=== PATIENT | male | born 2000 | race Caucasian/White ===

== ENCOUNTER 2023-08-05 22:29 | Emergency (ER) | payer OTHER ==
[~2023-08-05] VITALS: Ht 180.3 cm; Wt 117.9 kg
[2023-08-05 22:36] VITALS: BP 132/91; PULSE 92; RESP 16; TEMP 98; O2SAT 99
[2023-08-05] MEDS ORDERED: cefTRIAXone 1,000 MG VIAL ONE (23:09)
[2023-08-05] MEDS: KETOROLAC 60 MG/2 ML VIAL IM ONE (23:23)
[2023-08-05] MEDS: cefTRIAXone 1,000 MG in LIDOCAINE MPF 1% 2.1 ML IM ONE (23:23)
[2023-08-05] MEDS ORDERED: AMOX-1230 PO (23:46)
== END 2023-08-05 23:50 | disposition home or self-care (01) ==
LOC: MED 22:29
DX: S71.131A Puncture wound without foreign body, right thigh, initial encounter (principal); L03.115 Cellulitis of right lower limb; Z79.899 Other long term (current) drug therapy; W54.0XXA Bitten by dog, initial encounter; Y93.89 Activity, other specified; Y92.89 Other specified places as the place of occurrence of the external cause; Y99.8 Other external cause status
CPT/HCPCS: 96372; 99284; J0696; J1885